=== PATIENT | male | born 1985 | race Caucasian/White ===

== ENCOUNTER 2018-09-18 01:27 | Emergency (ER) | payer OTHER ==
[~2018-09-18] VITALS: Ht 177.8 cm; Wt 95.3 kg
[~2018-09-18 01:27] MED LIST: MEDROLDOSEPACK PO; NOHOMEMEDICATIONS; PERCOCET PO; TESSALON PERLE100 MG PO; VENTOLIN HFA 1818 GM INH; ZPAK PO
[2018-09-18 01:48] LABS: URINE BILIRUBIN NEGATIVE (Negative); URINE BLOOD 3+ (Negative); URINE CLARITY CLEAR; URINE COLOR YELLOW; URINE GLUCOSE-RANDOM NEGATIVE (Negative); URINE KETONES NEGATIVE (Negative); URINE LEUKOCYTES-REFLEX 1+ (Negative); URINE NITRITE-REFLEX NEGATIVE (Negative); URINE PROTEIN 2+ (Negative); URINE SPECIFIC GRAVITY 1.025 (1.005-1.030); URINE UROBILINOGEN 0.2 E.U./dl (0.2-1.0)
[2018-09-18 01:55] LABS: ABSOLUTE BASOPHILS 0.1 thou/uL (0.0-0.2); ABSOLUTE EOSINOPHILS 0.1 thou/uL (0.0-0.7); ABSOLUTE LYMPHOCYTES 1.6 thou/uL (0.8-5.3); ABSOLUTE MONOCYTES 0.8 thou/uL (0.0-1.2); ABSOLUTE NEUTROPHILS 10.4 thou/uL (1.6-8.1); BASOPHILS 0.7 %; EOSINOPHILS 0.6 %; HEMATOCRIT 48.1 % (42.0-52.0); HEMOGLOBIN 16.4 gm/dL (14.0-18.0); LYMPHOCYTES 12.5 %; MCH 28.3 pg (26.0-34.0); MCV 83.2 fL (80.0-100.0); MONOCYTES 5.9 %; MPV 9.5 fl. (7.2-11.1); NUCLEATED RBCS 0 /100WBC; PLATELET COUNT* 204 thou/uL (150-400); POLYS 80.3 %; RBC 5.78 mil/uL (4.50-6.00); RDW-CV 13.6 % (10.5-14.5)
[2018-09-18 02:07] LABS: CALCIUM 8.5 mg/dL (8.5-10.1); CREATININE 1.2 mg/dL (0.6-1.3); POTASSIUM 3.8 mmol/L (3.5-5.1)
[2018-09-18 02:08] LABS: INR 1.1; PROTIME 10.8 Seconds (9.20-11.50)
[2018-09-18 02:12] LABS: ALBUMIN 3.8 g/dL (3.4-5.0); TOTAL BILIRUBIN 0.5 mg/dL (<0.1-1.0); TOTAL PROTEIN 7.4 g/dL (6.4-8.2)
[2018-09-18 02:33] LABS: CASTS None Seen /LPF (None Seen); SQUAMOUS 0-3 Few /LPF (0-3)
[2018-09-18 02:34] LABS: URINE WBC-REFLEX >25 Many /HPF (0-5)
[2018-09-18 02:35] LABS: CRYSTALS None Seen /LPF (None Seen); URINE RBC >20 Many /HPF (0-2)
[2018-09-18] MEDS ORDERED: CIPROFLOXACIN500 M1 PO (03:02)
[2018-09-18 03:07] VITALS: BP 148/79
== END 2018-09-18 03:07 | disposition home or self-care (01) ==
LOC: M.ERS 01:27
PROVIDERS: Emergency Medicine
DX: N39.0 Urinary tract infection, site not specified (principal); R31.9 Hematuria, unspecified; J45.909 Unspecified asthma, uncomplicated

== ENCOUNTER 2019-12-22 14:17 | Emergency (ER) | payer OTHER ==
[~2019-12-22] VITALS: Ht 177.8 cm; Wt 95.3 kg
[~2019-12-22 14:17] MED LIST changes: +CIPROFLOXACIN500 M1 PO
[2019-12-22 14:36] LABS: URINE BILIRUBIN NEGATIVE (Negative); URINE BLOOD 1+ (Negative); URINE COLOR YELLOW; URINE GLUCOSE-RANDOM NEGATIVE (Negative); URINE KETONES NEGATIVE (Negative); URINE LEUKOCYTES-REFLEX NEGATIVE (Negative); URINE PROTEIN 1+ (Negative); URINE SPECIFIC GRAVITY 1.025 (1.005-1.030); URINE UROBILINOGEN 0.2 E.U./dl (0.2-1.0)
[2019-12-22 14:37] LABS: URINE CLARITY HAZY; URINE NITRITE-REFLEX POSITIVE (Negative)
[2019-12-22 14:46] LABS: SQUAMOUS 0-3 Few /LPF (0-3)
[2019-12-22 14:47] LABS: BACTERIA-REFLEX 1-9 Few /HPF (None Seen); CASTS None Seen /LPF (None Seen); CRYSTALS None Seen /LPF (None Seen); MUCUS 0-3 Light strn/LPF (None Seen); URINE RBC >20 Many /HPF (0-2); URINE WBC-REFLEX 0-5 Rare /HPF (0-5)
[2019-12-22] MEDS ORDERED: DOXYCYCLINE 10100 MG PO (16:33)
[2019-12-22 16:48] VITALS: BP 141/70
== END 2019-12-22 16:49 | disposition home or self-care (01) ==
LOC: M.ERS 14:17
PROVIDERS: Physician Assistant
DX: N39.0 Urinary tract infection, site not specified (principal); J45.909 Unspecified asthma, uncomplicated